=== PATIENT | male | born 2005 | race Hispanic/Latino ===

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

== ENCOUNTER → 2025-04-28 | Outpatient (CLI) | payer OTHER ==
--- NOTE | 2025-04-29 06:59 | HMCIMG ---
EXAM: CR Right Foot, 3 views. CLINICAL HISTORY: Contusion. COMPARISON: CR right foot. 04/06/2025. FINDINGS: No acute fracture or aggressively appearing osseous lesion. Joint spaces are within normal limits. The soft tissues are unremarkable. IMPRESSION: No acute osseous abnormality. No new acute findings. /[place]
== END | disposition home or self-care (01) ==
LOC: RAH 11:36
PROVIDERS: ATTEND Physical Medicine & Rehabilitation
DX: S90.121A Contusion of right lesser toe(s) without damage to nail, initial encounter (principal); M79.674 Pain in right toe(s); X58.XXXA Exposure to other specified factors, initial encounter; Y93.89 Activity, other specified; Y92.89 Other specified places as the place of occurrence of the external cause; Y99.8 Other external cause status
CPT/HCPCS: 73630